=== PATIENT | male | born 1940 | race Caucasian/White ===

== ENCOUNTER 2021-04-13 23:07 | Emergency (ER) | payer MEDICARE ==
[~2021-04-13] VITALS: Ht 167.6 cm; Wt 69.9 kg
[2021-04-13] MEDS ORDERED: HYDRALAZINE HCL 20 MG/ML VIAL IV STA (23:49)
[2021-04-14 00:36] LABS: BASOPHILS % 0.3 % (0.0-1.0); EOSINOPHILS # (AUTO) 0.3 (0.0-0.4); EOSINOPHILS % 5.2 % (0.0-6.0); HEMATOCRIT 41.4 % (38.2-49.6); HEMOGLOBIN 13.8 g/dL (14.0-18.0); LYMPHOCYTES # (AUTO) 1.1 (1.0-3.2); LYMPHOCYTES % 18.2 % (18.0-39.1); MEAN CORPUSCULAR HEMOGLOBIN 31.6 pg (28-32); MEAN CORPUSCULAR HGB CONC 33.3 g/dL (31-35); MEAN CORPUSCULAR VOLUME 94.7 fL (81-99); MONOCYTES # (AUTO) 0.6 (0.2-0.8); MONOCYTES % 10.1 % (4.4-11.3); NEUTROPHILS # (AUTO) 3.9 (2.1-6.9); NEUTROPHILS % 65.9 % (38.7-80.0); PLATELET COUNT 144 x10e3/uL (140-360); RED BLOOD COUNT 4.37 x10e6/uL (4.3-5.7); RED CELL DISTRIBUTION WIDTH 12.2 % (11.7-14.4)
[2021-04-14 00:43] LABS: ANION GAP 13.5 mmol/L (8-16); CALCIUM 9.1 mg/dL (8.4-10.2); CREATININE, SERUM 0.85 mg/dL (0.72-1.25); POTASSIUM 3.5 mmol/L (3.5-5.1)
[2021-04-14 00:51] LABS: CREATINE KINASE MB 2.7 ng/mL (0-5.0)
== END 2021-04-14 02:48 | disposition home or self-care (01) ==
LOC: ER 23:36
DX: I16.0 Hypertensive urgency (principal); R94.31 Abnormal electrocardiogram [ECG] [EKG]; I10 Essential (primary) hypertension; E78.5 Hyperlipidemia, unspecified; I50.9 Heart failure, unspecified; I25.10 Atherosclerotic heart disease of native coronary artery without angina pectoris
CPT/HCPCS: 36415; 80048; 82550; 82553; 84484; 85025; 93005; 99284; J0360

== ENCOUNTER 2022-08-08 10:09 | Emergency (ER) | payer MEDICARE ==
[~2022-08-08] VITALS: Ht 167.6 cm; Wt 69.9 kg
[2022-08-08] MEDS ORDERED: DIATRIZOATE MEGL/DIATRIZOA SOD 30 ML BTL PO ONE (10:54)
[2022-08-08 13:27] VITALS: BP 186/84
[2022-08-08] MEDS ORDERED: ATORVASTATIN CA40 MG PO (17:31)
[2022-08-08] MEDS ORDERED: LOSARTAN POTAS100 MG PO (17:31)
[2022-08-08] MEDS ORDERED: ASPIRIN81 MG PO (17:31)
[2022-08-08] MEDS ORDERED: HYDROCHLOROTH12.5 MG PO (17:31)
[2022-08-08] MEDS ORDERED: CARVEDILOL6.25 MG PO (17:31)
[2022-08-08] MEDS ORDERED: TAMSULOSIN PO (17:31)
[2022-08-08] MEDS ORDERED: MULTI-VITAMIN1 EACH PO (17:31)
[2022-08-08] MEDS ORDERED: CLOPIDOGREL75 MG PO (17:31)
[2022-08-08] MEDS ORDERED: FINASTERIDE5 MG PO (17:31)
[2022-08-08] MEDS ORDERED: COQ-10100 MG PO (17:33)
[2022-08-08] MEDS ORDERED: COLACE100 MG/10 PO (17:35)
[2022-08-09] MEDS ORDERED: COLACE100 M1 PO (10:15)
[2022-08-09] MEDS ORDERED: POTASSIUM CHLO10 ME1 PO (10:15)
[2022-08-09] MEDS ORDERED: STOOL SOFTENER100 MG (10:15)
[2022-08-09] MEDS ORDERED: AMLODIPINE-VAL1 EAC2 PO (10:18)
== END 2022-08-08 12:55 | disposition home or self-care (01) ==
LOC: ER 10:13
DX: R09.89 Other specified symptoms and signs involving the circulatory and respiratory systems (principal); K22.9 Disease of esophagus, unspecified; I10 Essential (primary) hypertension; I50.9 Heart failure, unspecified; E78.5 Hyperlipidemia, unspecified; I25.10 Atherosclerotic heart disease of native coronary artery without angina pectoris; Z95.1 Presence of aortocoronary bypass graft
CPT/HCPCS: 74220; 99283; Q9963

== ENCOUNTER 2022-08-08 14:23 | Inpatient (IN) | payer MEDICARE ==
[~2022-08-08] VITALS: Ht 167.6 cm; Wt 68.0 kg
[2022-08-08] MEDS ORDERED: SODIUM CHLORIDE 0.9% 1000ML 1,000 ML IV SCH (14:45)
[2022-08-08] MEDS ORDERED: ONDANSETRON HCL INJ 2MG/ML 2ML 2 MG/ML VIAL IV PRN ×2 (14:45→22:30)
[2022-08-08 14:51] LABS: BASOPHILS % 0.2 % (0.0-1.0); EOSINOPHILS # (AUTO) 0.2 (0.0-0.4); EOSINOPHILS % 3.6 % (0.0-6.0); HEMATOCRIT 45.7 % (38.2-49.6); HEMOGLOBIN 14.5 g/dL (14.0-18.0); LYMPHOCYTES # (AUTO) 1.1 (1.0-3.2); LYMPHOCYTES % 16.1 % (18.0-39.1); MEAN CORPUSCULAR HEMOGLOBIN 32.1 pg (28-32); MEAN CORPUSCULAR HGB CONC 31.7 g/dL (31-35); MEAN CORPUSCULAR VOLUME 101.1 fL (81-99); MONOCYTES # (AUTO) 0.5 (0.2-0.8); MONOCYTES % 7.3 % (4.4-11.3); NEUTROPHILS # (AUTO) 4.8 (2.1-6.9); NEUTROPHILS % 72.5 % (38.7-80.0); PLATELET COUNT 161 x10e3/uL (140-360); RED BLOOD COUNT 4.52 x10e6/uL (4.3-5.7)
[2022-08-08 15:10] LABS: ALBUMIN 4.5 g/dL (3.5-5.0); ALBUMIN/GLOBULIN RATIO 1.1 (0.8-2.0); ANION GAP 16.8 mmol/L (8-16); CALCIUM 9.7 mg/dL (8.4-10.2); CREATININE, SERUM 0.91 mg/dL (0.72-1.25); POTASSIUM 3.8 mmol/L (3.5-5.1)
[2022-08-08 17:10] VITALS: BP 166/78
[2022-08-08] MEDS ORDERED: CARVEDILOL6.25 MG PO (17:31)
[2022-08-08] MEDS ORDERED: LOSARTAN POTAS100 MG PO (17:31)
[2022-08-08] MEDS ORDERED: ATORVASTATIN CA40 MG PO (17:31)
[2022-08-08] MEDS ORDERED: MULTI-VITAMIN1 EACH PO (17:31)
[2022-08-08] MEDS ORDERED: HYDROCHLOROTH12.5 MG PO (17:31)
[2022-08-08] MEDS ORDERED: ASPIRIN81 MG PO (17:31)
[2022-08-08] MEDS ORDERED: FINASTERIDE5 MG PO (17:31)
[2022-08-08] MEDS ORDERED: CLOPIDOGREL75 MG PO (17:31)
[2022-08-08] MEDS ORDERED: TAMSULOSIN PO (17:31)
[2022-08-08] MEDS ORDERED: COQ-10100 MG PO (17:33)
[2022-08-08] MEDS ORDERED: COLACE100 MG/10 PO (17:35)
[2022-08-08 17:38] VITALS: BP 166/78
[2022-08-08 17:42] VITALS: BP 166/78
[2022-08-08 20:00] VITALS: BP 164/81
[2022-08-08] MEDS ORDERED: SIMETHICONE 80 MG CHEW PO PRN (22:30)
[2022-08-08] MEDS ORDERED: DOCUSATE SODIUM 100 MG CAP PO PRN (22:30)
[2022-08-08] MEDS ORDERED: ALBUTEROL/IPRATROPIUM 3 ML NEB NEB PRN (22:30)
[2022-08-08] MEDS ORDERED: MELATONIN 5 MG TABLET PO PRN (22:30)
[2022-08-08] MEDS ORDERED: DIPHENHYDRAMINE HCL 25 MG CAP PO PRN (22:30)
[2022-08-08] MEDS ORDERED: ACETAMINOPHEN 325 MG TAB PO PRN (22:30)
[2022-08-08] MEDS ORDERED: HYDRALAZINE HCL 20 MG/ML VIAL IV PRN (22:30)
[2022-08-08] MEDS ORDERED: POTASSIUM CHLORIDE 20 MEQ TAB CR PO PRN (22:30)
[2022-08-08] MEDS ORDERED: LIDOCAINE 4% PATCH TP PRN (22:30)
[2022-08-08] MEDS ORDERED: DEXTROSE 50% SYRINGE 50 ML IV PRN (22:30)
[2022-08-08] MEDS ORDERED: BENZONATATE 100 MG CAP PO PRN (22:30)
[2022-08-08] MEDS: DEXTROSE 5%/0.9% SOD CHL 1,000 ML IV SCH (23:01)
[2022-08-09 00:07] VITALS: BP 166/80
[2022-08-09 04:00] VITALS: BP 133/83
[2022-08-09 04:50] LABS: BASOPHILS % 0.2 % (0.0-1.0); EOSINOPHILS # (AUTO) 0.4 (0.0-0.4); EOSINOPHILS % 7.2 % (0.0-6.0); HEMATOCRIT 40.9 % (38.2-49.6); HEMOGLOBIN 13.2 g/dL (14.0-18.0); LYMPHOCYTES # (AUTO) 1.2 (1.0-3.2); LYMPHOCYTES % 23.7 % (18.0-39.1); MEAN CORPUSCULAR HEMOGLOBIN 32.1 pg (28-32); MEAN CORPUSCULAR HGB CONC 32.3 g/dL (31-35); MEAN CORPUSCULAR VOLUME 99.5 fL (81-99); MONOCYTES # (AUTO) 0.7 (0.2-0.8); MONOCYTES % 13.3 % (4.4-11.3); NEUTROPHILS # (AUTO) 2.7 (2.1-6.9); NEUTROPHILS % 55.6 % (38.7-80.0); PLATELET COUNT 145 x10e3/uL (140-360); RED BLOOD COUNT 4.11 x10e6/uL (4.3-5.7); RED CELL DISTRIBUTION WIDTH 11.9 % (11.7-14.4)
[2022-08-09 05:04] LABS: ANION GAP 13.6 mmol/L (8-16); CALCIUM 8.5 mg/dL (8.4-10.2); CREATININE, SERUM 0.75 mg/dL (0.72-1.25); POTASSIUM 3.6 mmol/L (3.5-5.1)
[2022-08-09 05:18] LABS: MAGNESIUM 1.8 MG/DL (1.3-2.1)
[2022-08-09 05:39] LABS: THYROID STIMULATING HORMONE 3.408 uIU/mL (0.350-4.940)
[2022-08-09] MEDS: DEXTROSE 5%/0.9% SOD CHL 1,000 ML IV SCH ×2 (07:13→14:30)
[2022-08-09] MEDS ORDERED: PANTOPRAZOLE SOD 40 MG TABEC PO SCH (07:30)
[2022-08-09 08:27] VITALS: BP 145/72
[2022-08-09] MEDS ORDERED: POTASSIUM CHLO10 ME1 PO (10:15)
[2022-08-09] MEDS ORDERED: COLACE100 M1 PO (10:15)
[2022-08-09] MEDS ORDERED: STOOL SOFTENER100 MG (10:15)
[2022-08-09] MEDS ORDERED: AMLODIPINE-VAL1 EAC2 PO (10:18)
[2022-08-09 12:30] VITALS: BP 148/72
[2022-08-09 13:02] VITALS: BP 148/72
== END 2022-08-09 16:30 | disposition home or self-care (01) | DRG 392 ==
LOC: ER 14:26 → ERHOLD 14:42 → MED/SURG 16:41
PROVIDERS: ADMIT Internal Medicine; ATTEND Internal Medicine
DX: R13.19 Other dysphagia (principal); K22.89 Other specified disease of esophagus; K59.00 Constipation, unspecified; R79.89 Other specified abnormal findings of blood chemistry; I11.0 Hypertensive heart disease with heart failure; I50.9 Heart failure, unspecified; I25.10 Atherosclerotic heart disease of native coronary artery without angina pectoris; N40.0 Benign prostatic hyperplasia without lower urinary tract symptoms; E78.5 Hyperlipidemia, unspecified; Z90.49 Acquired absence of other specified parts of digestive tract; Z95.1 Presence of aortocoronary bypass graft; Z88.0 Allergy status to penicillin; Z79.82 Long term (current) use of aspirin; Z79.01 Long term (current) use of anticoagulants; Z79.899 Other long term (current) drug therapy
CPT/HCPCS: 36415; 80048; 80053; 83036; 83735; 84443; 85025; 94799; 99284; J7030; J7042

== ENCOUNTER 2022-12-27 15:25 | Emergency (ER) | payer MEDICARE ==
[~2022-12-27] VITALS: Ht 167.6 cm; Wt 68.9 kg
[~2022-12-27 15:25] MED LIST: AMLODIPINE-VAL1 EAC2 PO; ASPIRIN81 MG PO; ATORVASTATIN CA40 MG PO; CARVEDILOL6.25 MG PO; CLOPIDOGREL75 MG PO; COLACE100 M1 PO; COLACE100 MG/10 PO; COQ-10100 MG PO; FINASTERIDE5 MG PO; HYDROCHLOROTH12.5 MG PO; LOSARTAN POTAS100 MG PO; MULTI-VITAMIN1 EACH PO; POTASSIUM CHLO10 ME1 PO; STOOL SOFTENER100 MG; TAMSULOSIN PO
[2022-12-27 15:34] VITALS: O2SAT 100
== END 2022-12-27 18:18 | disposition home or self-care (01) ==
LOC: ER 15:30
DX: H11.32 Conjunctival hemorrhage, left eye (principal); T14.8XXA Other injury of unspecified body region, initial encounter; I25.810 Atherosclerosis of coronary artery bypass graft(s) without angina pectoris; I11.0 Hypertensive heart disease with heart failure; I50.9 Heart failure, unspecified; N40.0 Benign prostatic hyperplasia without lower urinary tract symptoms; E78.5 Hyperlipidemia, unspecified; W20.8XXA Other cause of strike by thrown, projected or falling object, initial encounter; Y92.009 Unspecified place in unspecified non-institutional (private) residence as the place of occurrence of the external cause; Z88.0 Allergy status to penicillin; Z79.02 Long term (current) use of antithrombotics/antiplatelets; Z79.82 Long term (current) use of aspirin; Z79.899 Other long term (current) drug therapy; Z95.1 Presence of aortocoronary bypass graft; Z87.891 Personal history of nicotine dependence; Z98.61 Coronary angioplasty status
CPT/HCPCS: 70450; 70486; 72125; 99283